=== PATIENT | female | born 1965 | race Caucasian/White ===

== ENCOUNTER 2023-07-31 09:40 | Day surgery (SDC) | payer BC ==
[2023-07-28 09:29] VITALS: BMI 22.8
[2023-07-31 11:05] VITALS: RESP 20; TEMP 97.3
[2023-07-31 11:32] VITALS: BP 100/60; PULSE 92
== END 2023-07-31 11:30 | disposition home or self-care (01) ==
LOC: FASU-ENDO 09:40
PROVIDERS: ATTEND Internal Medicine Gastroenterology
PROC: 0DJD8ZZ Inspection of Lower Intestinal Tract, Via Natural or Artificial Opening Endoscopic (ICD-10-PCS; principal; 2023-07-31 10:31)
DX: Z12.11 Encounter for screening for malignant neoplasm of colon (principal)